=== PATIENT | female | born 1950 | race Hispanic/Latino ===

== ENCOUNTER 2019-10-04 07:46 | Day surgery (SDC) | payer OTHER ==
--- NOTE | 2019-09-30 11:02 | RAD REPORT ---
EXAM DESCRIPTION: RAD - Chest Pa And Lat (2 Views) - 09/30/2019 10:55 am CLINICAL HISTORY: preop, pending hemorrhoid surgery COMPARISON: None. TECHNIQUE: PA and lateral views of the chest were obtained. FINDINGS: The lungs are clear. Heart size is normal and central vasculature is within normal limit s. No pleural effusion or pneumothorax seen. Osteopenic and degenerative bony changes are present. No aortic abnormality. IMPRESSION: No acute cardiopulmonary process.
[2019-09-30 13:04] LABS: Absolute Lymphocytes (CBC) 1.3 K/uL (0.7-4.9); Basophils % 0.7 % (0-1.3); Hematocrit 39.2 % (36.0-45.0); MPV 10.2 fL (7.6-11.3); RBC Red Blood Cell Count 4.01 M/uL (3.86-4.86)
[2019-10-01 16:54] LABS: Potassium 4.2 mmol/L (3.5-5.1)
[2019-10-04] MEDS ORDERED: NA CHLORIDE 0.9% 1,000 ML ONE (07:54)
[2019-10-04] MEDS ORDERED: MIDAZOLAM HCL 2 MG/2 ML INJ ONE (07:55)
[2019-10-04] MEDS ORDERED: FENTANYL CITR 100 MCG/2 ML ONE (07:55)
[2019-10-04] MEDS ORDERED: PROPOFOL 200 MG/20 ML VIAL IV ONE (07:55)
[2019-10-04] MEDS ORDERED: LIDOCAINE 2% MPF 5 ML VIAL ONE (07:55)
[2019-10-04] MEDS ORDERED: CIPROFLOXACIN 400mg IV 400 MG/200 ML BAG IV ONE (08:32)
[2019-10-04] MEDS ORDERED: dexAMETHasone 4 MG/ML VIAL ONE (08:51)
[2019-10-04] MEDS ORDERED: ONDANSETRON 4 MG/2 ML VIAL ONE (08:51)
[2019-10-04] MEDS ORDERED: KETAMINE HCL 500 MG/5 ML VIAL ONE (08:54)
--- NOTE | 2019-10-04 09:22 | P.BOP ---
Preoperative diagnosis: prolapsed thrombosed hemorrhoids Postoperative diagnosis: same Primary procedure: EUA, anoscopy, rigid proctoscopy, hemorrhoidectomy ( two bundles): Secondary procedure: 1. Left posterolateral, 2. right posterolateral Estimated blood loss: <10cc Specimen: hemorrhoids x 2 Findings: see dictation Anesthesia: General Complications: None Drain(s): Other (surgicell) Transferred to: Recovery Room
[2019-10-04] MEDS ORDERED: PROMETHAZINE 25 MG/ML VIAL ONE (09:47)
[2019-10-04 10:17] VITALS: TEMP 97.1; O2SAT 99
[2019-10-04 11:11] VITALS: BP 132/62
--- NOTE | 2019-10-04 21:18 | OP ---
Date of Procedure: 10/04/2019 Surgeon: Star Weathers MD Preoperative Diagnoses: Prolapsed thrombosed hemorrhoids, perianal pain, bright red blood per rectum . Postoperative Diagnoses: Prolapsed thrombosed hemorrhoids, perianal pain, bright red blood per rectu m. Procedure Performed: Examination under anesthesia, anoscopy, rigid proctoscopy; hemorrhoidectomy 2 b undles; 1.Left posterolateral. 2.Right posterolateral. Estimated Blood Loss: Less than 10 mL. Specimen: Hemorrhoids bundles x2. Findings: Patient has prolapsed bleeding hemorrhoids. Anesthesia: General plus local. Indications: This is the case of a 69-year-old patient who comes to us with perianal tenderness mass consistent with possible hemorrhoids, so EUA, anoscopy, proctoscopy, possible hemorrhoidectomy discu ssed with the patient. With benefits, alternatives, and risks include, but not limited to infection, bleeding, damage to adjacent structures, anesthesia complication, anal stricture and incontinence, M I, and even . She also understands this might not relieve any symptoms. She might need more th an one surgical intervention. She understood, signed the consent. Description Of Procedure: The patient was brought to the operating room, placed in supine position. Anesthesia was done without complication. A time-out was called. The patient was placed in lithoto my position with proper protection. Just on the beginning we noticed the patient has 2 prolapsed hem orrhoids, looked like to bundles left and right, posterolateral. We prepped the area in the usual st erile fashion, rectal examination was done followed by a rigid proctoscopy all the way about 12 cm, w e cannot past that area, there was a large amount of stool present. Up to that area, we noticed inte rnal and external hemorrhoids. The one bleeding is external hemorrhoid with some internal component. So rigid proctoscope was removed under direct visualization and then I proceed to place an anal sco pe with a window on the side. This allowed me to visualize the anal canal and once again confirmed t he same findings. So, we have 2 hemorrhoid bundles that looked prolapsed, mainly external and some i nternal component, but they are bleeding. It is left posterolateral and right posterolateral, so we proceeded to remove those 2 bundles independently. First, we moved to the right side, we did an inci teddy on the anoderm, exposed the hemorrhoidal tissue, that from the center and then transec t that hemorrhoidal plexus with a Surgicel device. The area was checked for hemostasis. We proceede d to close the anoderm with 3-0 chromic. Then, we proceeded to the left posterolateral bundle, it wa s done using the same technique, incision in the anoderm, separate the hemorrhoidal plexus from the s phincter. Transected the hemorrhoid with Surgicel avoiding damage to the anal sphincter. Anoderm wa s closed with 3-0 chromic. After insuring hemostasis local anesthetic was applied over the area. Martines rgicel was placed in that area. Once again checked for hemostasis. No bleeding. The sponge count, instrument counts were correct. The patient tolerated the procedure well. The patient was sent to r ecovery room in stable condition. Diagnosis: Prolapsed bleeding hemorrhoids. Procedures: EUA, anoscopy, rigid proctoscopy, and hemorrhoidectomy 2 bundles, left posterior right p osterolateral. Disposition: Home. Activity: As tolerated. No heavy lifting. Followup: Follow up in my office in 1 week. Call for appointment at [phone]. Keep area dry until tonight, then she can use sitz baths 3 times a day and after every bowel movement. Tylenol No. 3 was given for pain. The patient also was given Colace 100 mg p.o. t.i.d. p.r.n. constipation. Followup: Follow up in my office in 1 week. Call for appointment at [phone]. NENA/JUAN Voice ID: [id number] Report ID: [id number]
--- OUTSIDE RECORDS SUMMARY | 2019-10-10 20:31 | XMS REPORT | Encounter Summary ---
:1950 Author Reason for Visit Psychiatric Follow Up Instructions 1. Depressive disorder Celexa 10 mg tablet 2. Anxiety disorder temazepam 15 mg capsule Discussion Note Advised to call if any problems or issues. Patient educational handouts: No information available. Plan of Care Patient Instructions Continue current treatment. RTC 3-months or sooner if necessary. Reminders Provider Appointments Est on or around [facility] Psychiatry 12/21/2019 Sancho Jimenez MD Lab None recorded. Referral None recorded. Procedures None recorded. Surgeries None recorded. Imaging None recorded. Medications Name Start Date atorvastatin 20 mg tablet Celexa 10 mg tablet Take 1 tablet every day by oral route in the morning. hydrocortisone 2.5 % topical cream with perineal applicator losartan 100 mg-hydrochlorothiazide 12.5 mg tablet losartan 50 mg-hydrochlorothiazide 12.5 mg tablet metformin 500 mg tablet prednisone 20 mg tablet Suprep Bowel Prep Kit 17.5 gram-3.13 gram-1.6 gram oral solution temazepam 15 mg capsule Take 2 capsules every day by oral route at bedtime. Medications Administered None recorded. Vitals None recorded. Results Lab Results None recorded. Allergies None recorded. Problems Name Status Onset Date Source Anxiety Disorder Active 03/15/2019 Depressive Disorder Active 03/15/2019 Procedures None recorded. Vaccine List None recorded. Social History None recorded. Past Encounters 09/20/2019 Depressive Disorder; Anxiety Disorder Azael Jimenez MD: [facility], [place] [address], Ph. [phone] History of Present Illness Psych Medication Management Reported By: Patient HPI: Medications: taking medications as directed, no side effects from medication. General overall feeling: feeling as well as can be expected Psychiatric General Follow-Up Reported By: Patient HPI: Context: no relationship stress, good family dynamics Associated Symptoms: Mood: no sadness. Anxiety: no generalized worry. Sleep: no insomnia. Appetite: no change Prior Treatment and Review:: Medication Compliance: greater than 90% Note: <p>Here for routine med. check. Reports doing well. No significant problems since last visit. Compliant with meds. No AE. Sleeping well at night. Appetite stable. E/C okay. Mood has been stable. No new health issues. No acute psychosocial stressors. Home life stable and unchanged. Denies ETOH/drugs. No legal issues. Interviewed with help of educational interpreter.</p> Review of Systems None recorded. Physical Exam Mental Status Exam Reported By: Patient Mental Status Exam: Appearance: well-groomed, clean. Behavior: eye contact, cooperative. Speech: clear. Perception: no hallucinations. Cognition: alert, oriented to situation, oriented to time, oriented to place, oriented to person, memory intact. Intelligence: average. Memory: remote, recent. Mood: euthymic. Affect: congruent to thought content. Insight: intact. Judgment: intact. Thought Processes: intact. Thought Content: unremarkable
== END 2019-10-04 11:18 | disposition home or self-care (01) ==
LOC: OR 07:46
PROVIDERS: ATTEND Surgery
PROC: 0DJD8ZZ Inspection of Lower Intestinal Tract, Via Natural or Artificial Opening Endoscopic (ICD-10-PCS; 2019-10-04)
PROC: 06BY0ZC Excision of Hemorrhoidal Plexus, Open Approach (ICD-10-PCS; principal; 2019-10-04 08:30)
DX: K64.5 Perianal venous thrombosis (principal); E11.9 Type 2 diabetes mellitus without complications; I10 Essential (primary) hypertension; E78.00 Pure hypercholesterolemia, unspecified; I25.2 Old myocardial infarction; F41.9 Anxiety disorder, unspecified; F32.9 Major depressive disorder, single episode, unspecified; Z88.0 Allergy status to penicillin; Z80.9 Family history of malignant neoplasm, unspecified; Z83.3 Family history of diabetes mellitus; Z82.49 Family history of ischemic heart disease and other diseases of the circulatory system
CPT/HCPCS: 85025; 80048; 36415 ×2; 82947 ×2; 88304; 71046; 45300; 46260; J2704; J2550; J2250; J3010; J7030; J2405; J0744